=== PATIENT | male | born 1935 | race Two or more races ===

== ENCOUNTER 2017-11-26 18:09 | Emergency (ER) | payer MEDICARE ==
[2017-11-26] MEDS ORDERED: EPINEPHrine 10 ML SYRINGE (0.1 MG/ML) ONE (18:10)
--- NOTE | 2017-11-26 18:44 | ED ---
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 according to the ACLS protocol he got Toradol 7-8 epis ventricular CPR on arrival he had no pulse and he had an acute tube in place and he was being bagged Review of Systems ROS Statement: Those systems with pertinent positive or pertinent negative responses have been documented in the HPI. ROS Other: All systems not noted in ROS Statement are negative. 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 He has endotracheal tube in place and he has automated machine doing chest compressions we did check his pulse after pausing to machine here no pulse and no spontaneous respiratory activity noticed abdomen soft nontender he was quite cyanotic on arrival nouro exam consistent with asystole Course I EMS crew did the CPR for about a 1 hour he had endotracheal tube in place. Automated machine during the chest compressions on arrival he had no pulse and we did the ultrasound subxiphoid examination the heart rate showed no cardiac activity at all pupils on the left side were nonreactive patient was pronounced 1815. Admitted to the and the 2 sons explained them the whole situation for about 20 minutes Disposition Clinical Impression: Asystole Disposition: Referrals: None,Stated [Primary Care Provider] - 1-2 days Preliminary Cause of : PA most probably
== END 2017-11-26 20:15 | disposition expired ==
LOC: EC 18:09
DX: I46.9 Cardiac arrest, cause unspecified (principal)
CPT/HCPCS: 99285